=== PATIENT | female | born 1975 | race Caucasian/White ===

== ENCOUNTER 2021-08-07 19:22 | Emergency (ER) | payer SELFPAY ==
[~2021-08-07] VITALS: Ht 157.5 cm; Wt 82.0 kg
[2021-08-07] MEDS ORDERED: ONDANSETRON 4MG ODT PO ONE (21:45)
[2021-08-07] MEDS ORDERED: ONDANSETRON 4MG ODT PO NR (23:06)
[2021-08-07 23:26] LABS: BASOPHILS % 0.3 % (0.0-2.0); CHLORIDE 110 mEq/L (98-107); EOSINOPHILS % 0.2 % (0.0-5.0); HEMATOCRIT. 33.3 % (36.0-48.0); HEMOGLOBIN. 11.1 g/dL (12.0-16.0); MEAN CORPUSCULAR HEMOGLOBIN 29.1 pg (28.0-32.0); MEAN CORPUSCULAR VOLUME 87.5 fL (81.0-99.0); MEAN PLATELET VOLUME 8.5 fl (7.4-10.4); MONOCYTES % 6.5 % (2.0-8.0); PLATELET 236 x1000/uL (130-400); RED BLOOD CELL COUNT 3.81 mill/uL (4.2-5.4); RED CELL DISTRIBUTION WIDTH 13.1 % (11.6-14.6)
[2021-08-07 23:29] LABS: INR 1.1; PROTHROMBIN TIME 11.9 sec (9.6-11.0)
[2021-08-08 00:20] VITALS: BP 98/52
== END 2021-08-08 00:52 | disposition home or self-care (01) ==
LOC: ER 19:22
DX: I83.892 Varicose veins of left lower extremity with other complications (principal); R11.0 Nausea
CPT/HCPCS: 36415; 80053; 85025; 85610; 86850; 86900; 86901; 99283; Q0162